=== PATIENT | male | born 1955 | race Caucasian/White ===

== ENCOUNTER → 2018-02-22 | Outpatient (CLI) | payer BC ==
[~2018-02-22] MED LIST: CETI10TA24 PO; OXYC5CAP2 PO
[2018-02-22 10:29] LABS: MICROSCOPIC NOT IND
[2018-02-22 10:31] LABS: CULTURE INDICATED? NO
[2018-02-22 10:32] LABS: BASOPHILS # (AUTO) 0.05 x10^3/uL (0-0.1); BASOPHILS % (AUTO) 1 % (0-1); EOSINOPHILS # (AUTO) 0.12 x10^3/uL (0-0.4); EOSINOPHILS % (AUTO) 2 % (1-7); LYMPHOCYTES # (AUTO) 1.81 x10^3/uL (1-3.4); LYMPHOCYTES % (AUTO) 30 % (22-44); MD NO; MEAN CORPUSCULAR HEMOGLOBIN 32.1 pg (27.5-34.5); MEAN CORPUSCULAR HGB CONC 33.9 g/dL (33.2-36.2); MEAN CORPUSCULAR VOLUME 94.7 fL (81-97); MEAN PLATELET VOLUME 8.1 fL (7.4-10.4); MONOCYTES % (AUTO) 10 % (2-9); NEUTROPHILS # (AUTO) 3.38 x10^3/uL (1.8-6.8); NEUTROPHILS % (AUTO) 57 % (42-75); PLATELET COUNT 253 x10^3/uL (130-400); RED BLOOD COUNT 4.73 x10^6/uL (4.38-5.82); RED CELL DISTRIBUTION WIDTH 13.8 % (9.4-14.8)
[2018-02-22 10:39] LABS: ANION GAP 7 mmol/L (5-15); CALCIUM 9.2 mg/dL (8.5-10.1); CHLORIDE 106 mmol/L (98-107); CREATININE 1.13 mg/dL (0.7-1.3)
== END | disposition home or self-care (01) ==
LOC: STAR 08:52
PROVIDERS: ATTEND Orthopaedic Surgery
DX: Z01.818 Encounter for other preprocedural examination (principal); M17.12 Unilateral primary osteoarthritis, left knee
CPT/HCPCS: 36415; 80048; 81003; 85025; 87081; 87147; 93005

== ENCOUNTER 2018-02-28 05:53 | Inpatient (IN) | payer BC ==
[~2018-02-28] VITALS: Ht 180.3 cm; Wt 81.7 kg
[~2018-02-28 05:53] MED LIST changes: -OXYC5CAP2 PO
[2018-02-28] MEDS ORDERED: SODIUM CHLORIDE 0.9% 100 ML ONE (06:20)
[2018-02-28] MEDS ORDERED: TRANEXAMIC ACID 100 MG/ML, 10ML ONE (06:20)
[2018-02-28] MEDS ORDERED: KETOROLAC 60 MG/2 ML ONE (06:20)
[2018-02-28] MEDS ORDERED: ROPIvacaine/PF 0.2%, 20 ML ONE (06:20)
[2018-02-28] MEDS ORDERED: EPINEPHRINE 1 MG/ML, 1ML ONE (06:20)
[2018-02-28] MEDS ORDERED: LACTATED RINGERS 1,000 ML IV SCH (07:15)
[2018-02-28] MEDS ORDERED: ALBUTEROL SULFATE 2.5 MG/3 ML NPPB PRN (08:00)
[2018-02-28] MEDS ORDERED: FENTANYL PF 100 MCG/2ML IV PRN ×2 (08:00→10:30)
[2018-02-28] MEDS ORDERED: ACETAMINOPHEN 500 MG TABLET PO ONE (08:00)
[2018-02-28] MEDS ORDERED: hydrALAzine 20 MG/ML, 1ML IV PRN ×2 (08:00→10:30)
[2018-02-28] MEDS ORDERED: LABETALOL 5MG/ML, 20ML IV PRN ×2 (08:00→10:30)
[2018-02-28] MEDS ORDERED: GABAPENTIN 300 MG CAPSULE PO ONE (08:00)
[2018-02-28] MEDS ORDERED: HYDROmorphone 1 MG/ML, 1ML IV PRN ×3 (08:00→11:00)
[2018-02-28] MEDS ORDERED: OXYcodone 5 MG/5 ML ORAL.SOL UDC PO PRN ×2 (08:00→10:30)
[2018-02-28] MEDS ORDERED: MIDAZOLAM 1 MG/ML, 2ML ONE (08:12)
[2018-02-28] MEDS ORDERED: PROPOFOL 10 MG/ML, 20ML ONE (09:05)
[2018-02-28] MEDS ORDERED: CEFAZOLIN 1,000 MG ONE (09:05)
[2018-02-28] MEDS: D5%-0.45% NACL 1,000 ML IV SCH ×2 (10:37→20:00)
[2018-02-28] MEDS ORDERED: OXYcodone 5 MG/5 ML ORAL.SOL UDC ONE (10:50)
[2018-02-28] MEDS ORDERED: DIPHENHYDRAMINE 50 MG CAPSULE PO PRN (11:00)
[2018-02-28] MEDS ORDERED: ONDANSETRON 2MG/ML, 2ML IV PRN (11:00)
[2018-02-28] MEDS ORDERED: MAGNESIUM HYDROXIDE 8%, 30ML UDC PO PRN (11:00)
[2018-02-28] MEDS ORDERED: ONDANSETRON 4 MG TABLET PO PRN (11:00)
[2018-02-28] MEDS ORDERED: ZOLPIDEM 5MG TABLET PO PRN (11:00)
[2018-02-28] MEDS ORDERED: PROMETHAZINE 12.5 MG SUPP PR PRN (11:00)
[2018-02-28] MEDS ORDERED: TRANEXAMIC ACID 1,000 MG in SODIUM CHLORIDE 0.9% 100 ML IVPB ONE (11:00)
[2018-02-28] MEDS ORDERED: PROMETHAZINE 25 MG/ML, 1ML IM PRN (11:00)
[2018-02-28] MEDS ORDERED: BISACODYL 10 MG SUPP PR PRN (11:00)
[2018-02-28] MEDS ORDERED: DIAZEPAM 5 MG TABLET PO PRN (11:00)
[2018-02-28] MEDS ORDERED: ALUMINUM/MAG/SIMETHICONE 30 ML UDC PO PRN (11:00)
[2018-02-28] MEDS ORDERED: SENNA/DOCUSATE TABLET PO PRN (11:00)
[2018-02-28] MEDS: TAMSULOSIN 0.4 MG CAP.ER.24H PO SCH (11:15)
[2018-02-28] MEDS: KETOROLAC 30 MG/1 ML IV SCH ×3 (13:08→20:37)
[2018-02-28] MEDS: ACETAMINOPHEN 325 MG TABLET PO PRN ×2 (14:00→20:49)
[2018-02-28] MEDS: ASPIRIN 81 MG TABLET EC PO SCH (17:18)
[2018-02-28] MEDS: CEFAZOLIN PMX 2GM/50ML 50 ML IVPB SCH (17:18)
[2018-02-28 20:21] VITALS: BP 142/79
[2018-02-28] MEDS: DOCUSATE 100 MG CAPSULE PO SCH (20:37)
[2018-02-28] MEDS: OXYcodone IR 5MG TABLET PO PRN (23:11)
[2018-03-01 00:16] VITALS: BP 108/70
[2018-03-01] MEDS: CEFAZOLIN PMX 2GM/50ML 50 ML IVPB SCH (01:11)
[2018-03-01] MEDS: D5%-0.45% NACL 1,000 ML IV SCH (04:00)
[2018-03-01 04:47] VITALS: BP 138/80
[2018-03-01] MEDS: ASPIRIN 81 MG TABLET EC PO SCH (05:00)
[2018-03-01] MEDS: KETOROLAC 30 MG/1 ML IV SCH ×2 (05:00→11:43)
[2018-03-01] MEDS ORDERED: DEXAMETHASONE 4 MG/ML, 1ML IVPush SCH (06:00)
[2018-03-01 07:42] VITALS: BP 117/63
[2018-03-01] MEDS: DOCUSATE 100 MG CAPSULE PO SCH (08:41)
[2018-03-01] MEDS: OXYcodone IR 5MG TABLET PO PRN (08:41)
[2018-03-01] MEDS: TAMSULOSIN 0.4 MG CAP.ER.24H PO SCH (08:41)
[2018-03-01] MEDS ORDERED: MULTIVITAMINS/MINERALS TABLET PO SCH (09:00)
[2018-03-01] MEDS ORDERED: OXYC5CAP2 PO (09:59)
[2018-03-01 11:45] VITALS: BP 150/77
== END 2018-03-01 12:25 | disposition home or self-care (01) | DRG 470 ==
LOC: OUT 05:53 → ORIP 10:37 → 4NOR 12:55 → DCLOUNGE 03-01 12:05
PROVIDERS: ADMIT Orthopaedic Surgery; ATTEND Orthopaedic Surgery
PROC: 3E0T3BZ Introduction of Anesthetic Agent into Peripheral Nerves and Plexi, Percutaneous Approach (ICD-10-PCS; 2018-02-28)
PROC: 0SRD069 Replacement of Left Knee Joint with Oxidized Zirconium on Polyethylene Synthetic Substitute, Cemented, Open Approach (ICD-10-PCS; principal; 2018-02-28 09:15)
DX: M17.12 Unilateral primary osteoarthritis, left knee (principal); Z79.899 Other long term (current) drug therapy
CPT/HCPCS: 36415; 85014; 85018; C1713; G0378; J0171; J0690; J1100; J1885; J2250; J2704; J2795; C1776; J7120